=== PATIENT | male | born 1955 | race Caucasian/White ===

== ENCOUNTER 2018-08-23 09:02 | Inpatient (IN) | payer OTHER, BC ==
[2018-08-23] MEDS: METHYLPREDNISOLONE 125 MG INJ IV (09:41)
[2018-08-23 09:50] LABS: ADD MAN DIFF? NO
[2018-08-23] MEDS: ALBUTEROL 0.5% (NEB) 2.5 MG/0.5 ML AMP INH (09:50)
[2018-08-23] MEDS: IPRATROPIUM (NEB) 0.5 MG/2.5 ML AMP INH (09:50)
[2018-08-23 09:52] LABS: BASOPHILS % 0.7 % (0.0-2.0); EOSINOPHILS # 0.3 10^3/ul (0.0-0.5); EOSINOPHILS % 5.9 % (0.0-7.0); HEMATOCRIT 47.3 % (42.0-52.0); HEMOGLOBIN 15.7 g/dl (14.0-18.0); LYMPHOCYTES # 1.4 10^3/ul (0.8-2.9); LYMPHOCYTES % 26.1 % (15.0-51.0); MEAN CORPUSCULAR HEMOGLOBIN 29.5 pg (29.0-33.0); MEAN CORPUSCULAR HGB CONC 33.2 g/dl (32.0-37.0); MEAN CORPUSCULAR VOLUME 88.7 fl (82.0-101.0); MEAN PLATELET VOLUME 10.2 fl (7.4-10.4); MONOCYTE # 0.6 10^3/ul (0.3-0.9); MONOCYTES % 11.5 % (0.0-11.0); NEUTROPHILS % 55.6 % (39.0-77.0); PLATELET COUNT 189 10^3/UL (140-415); RED BLOOD COUNT 5.33 10^6/ul (4.70-6.10); RED CELL DISTRIBUTION WIDTH 12.4 % (11.5-14.5)
[2018-08-23 09:52] LABS: WHITE BLOOD COUNT 5.4 10^3/ul (4.8-10.8)
[2018-08-23 10:12] LABS: ANION GAP 7 (5-13); BLOOD UREA NITROGEN 21 mg/dl (7-20); CALCIUM 9.7 mg/dl (8.4-10.2); CARBON DIOXIDE 29 mmol/L (21-31); CHLORIDE 109 mmol/L (97-110); CREATININE 0.93 mg/dl (0.61-1.24); GLUCOSE 96 mg/dl (70-220); POTASSIUM 4.4 mmol/L (3.5-5.1); SODIUM 145 mmol/L (135-144)
[2018-08-23 10:16] LABS: INR 0.92; PROTIME 12.4 Sec (11.9-14.9)
[2018-08-23 10:24] LABS: TROPONIN-I < 0.012 ng/ml (0.000-0.120)
[2018-08-23] MEDS: SOD CHLORIDE 0.9% 1,000 ML IV (11:01)
[2018-08-23] MEDS: MAGNESIUM SULFATE 2 GM/50 ML 50 ML IVPB (11:35)
[2018-08-23] MEDS ORDERED: ACETAMINOPHEN 325 MG TAB PO ×2 (12:30→15:00)
[2018-08-23] MEDS ORDERED: ONDANSETRON 4 MG INJ IV ×2 (12:30→15:00)
[2018-08-23 14:57] LABS: LACTIC ACID 1.6 mmol/L (0.5-2.0)
[2018-08-23] MEDS ORDERED: HYDROCODONE/APAP (5/325) TAB PO (15:00)
[2018-08-23 17:08] LABS: CREATINE KINASE 86 IU/L (23-200)
[2018-08-23 17:14] LABS: CK INDEX 1.9; CK-MB 1.64 ng/ml (0.0-2.4); TROPONIN-I < 0.012 ng/ml (0.000-0.120)
[2018-08-23] MEDS: LEVOFLOXACIN 500 MG TAB PO (17:20)
[2018-08-23] MEDS: DOCUSATE SODIUM 100 MG CAP PO (17:20)
[2018-08-23] MEDS: ALBUTEROL/IPRATROPIUM (NEB) 3 ML AMP HHN ×2 (18:20→20:29)
[2018-08-23 20:48] LABS: CREATINE KINASE 98 IU/L (23-200)
[2018-08-23] MEDS: FAMOTIDINE 20 MG TAB PO (20:53)
[2018-08-23 20:58] LABS: CK INDEX 1.8; TROPONIN-I < 0.012 ng/ml (0.000-0.120)
[2018-08-24] MEDS: LEVOFLOXACIN 500 MG TAB PO (05:55)
[2018-08-24] MEDS: DOCUSATE SODIUM 100 MG CAP PO ×2 (05:55→15:00)
[2018-08-24 07:09] LABS: ADD MAN DIFF? NO
[2018-08-24 07:12] LABS: BASOPHILS % 0.2 % (0.0-2.0); EOSINOPHILS # 0.1 10^3/ul (0.0-0.5); EOSINOPHILS % 0.7 % (0.0-7.0); HEMATOCRIT 41.8 % (42.0-52.0); HEMOGLOBIN 14.1 g/dl (14.0-18.0); LYMPHOCYTES # 1.4 10^3/ul (0.8-2.9); MEAN CORPUSCULAR HEMOGLOBIN 29.8 pg (29.0-33.0); MEAN CORPUSCULAR HGB CONC 33.7 g/dl (32.0-37.0); MEAN CORPUSCULAR VOLUME 88.4 fl (82.0-101.0); MEAN PLATELET VOLUME 10.7 fl (7.4-10.4); MONOCYTE # 0.9 10^3/ul (0.3-0.9); MONOCYTES % 10.2 % (0.0-11.0); NEUTROPHIL # 6.6 10^3/ul (1.6-7.5); NEUTROPHILS % 72.6 % (39.0-77.0); PLATELET COUNT 173 10^3/UL (140-415); RED BLOOD COUNT 4.73 10^6/ul (4.70-6.10); RED CELL DISTRIBUTION WIDTH 12.5 % (11.5-14.5)
[2018-08-24 07:31] LABS: ANION GAP 7 (5-13); BLOOD UREA NITROGEN 18 mg/dl (7-20); CALCIUM 9.2 mg/dl (8.4-10.2); CARBON DIOXIDE 27 mmol/L (21-31); CHLORIDE 107 mmol/L (97-110); CREATININE 0.83 mg/dl (0.61-1.24); GLUCOSE 96 mg/dl (70-220); PHOSPHORUS 3.3 mg/dl (2.5-4.9); SODIUM 141 mmol/L (135-144)
[2018-08-24] MEDS: METHYLPREDNISOLONE 40 MG INJ IV (08:50)
[2018-08-24] MEDS: FAMOTIDINE 20 MG TAB PO ×2 (08:50→21:53)
[2018-08-24] MEDS: ALBUTEROL/IPRATROPIUM (NEB) 3 ML AMP HHN ×4 (09:27→20:29)
[2018-08-24] MEDS: MONTELUKAST 10 MG TAB PO (21:53)
[2018-08-25] MEDS: DOCUSATE SODIUM 100 MG CAP PO ×2 (03:00→15:00)
[2018-08-25] MEDS: ALBUTEROL/IPRATROPIUM (NEB) 3 ML AMP HHN ×4 (07:45→21:20)
[2018-08-25] MEDS: FAMOTIDINE 20 MG TAB PO ×2 (08:36→21:04)
[2018-08-25] MEDS: METHYLPREDNISOLONE 40 MG INJ IV (08:37)
[2018-08-25] MEDS: ACETYLCYSTEINE 20% 4 ML VIAL NEB ×2 (12:08→16:00)
[2018-08-25] MEDS: METHYLPREDNISOLONE 125 MG INJ IV ×2 (13:32→21:04)
[2018-08-25] MEDS: MONTELUKAST 10 MG TAB PO (21:04)
[2018-08-26] MEDS: DOCUSATE SODIUM 100 MG CAP PO ×2 (02:07→15:49)
[2018-08-26] MEDS: METHYLPREDNISOLONE 125 MG INJ IV ×3 (06:15→21:46)
[2018-08-26] MEDS: FAMOTIDINE 20 MG TAB PO ×2 (08:24→20:45)
[2018-08-26] MEDS: ALBUTEROL/IPRATROPIUM (NEB) 3 ML AMP HHN ×5 (09:12→23:20)
[2018-08-26] MEDS ORDERED: AZITHROMYCIN 250 MG TAB PO (11:30)
[2018-08-26] MEDS: LEVOFLOXACIN 500 MG TAB PO (12:07)
[2018-08-26] MEDS: MAGNESIUM SULFATE 2 GM/50 ML 50 ML IVPB (19:17)
[2018-08-26] MEDS: MONTELUKAST 10 MG TAB PO (20:45)
[2018-08-27] MEDS: ZOLPIDEM 5 MG TAB PO (00:12)
[2018-08-27] MEDS ORDERED: DOCUSATE SODIUM 100 MG CAP PO (03:00)
[2018-08-27] MEDS: LEVOFLOXACIN 500 MG TAB PO (06:08)
[2018-08-27] MEDS: METHYLPREDNISOLONE 125 MG INJ IV (06:08)
[2018-08-27 06:26] LABS: ADD MAN DIFF? NO
[2018-08-27 06:30] LABS: BASOPHILS % 0.1 % (0.0-2.0); HEMATOCRIT 43.8 % (42.0-52.0); HEMOGLOBIN 14.4 g/dl (14.0-18.0); LYMPHOCYTES # 0.8 10^3/ul (0.8-2.9); LYMPHOCYTES % 5.7 % (15.0-51.0); MEAN CORPUSCULAR HEMOGLOBIN 29.1 pg (29.0-33.0); MEAN CORPUSCULAR HGB CONC 32.9 g/dl (32.0-37.0); MEAN CORPUSCULAR VOLUME 88.7 fl (82.0-101.0); MEAN PLATELET VOLUME 10.5 fl (7.4-10.4); MONOCYTE # 0.7 10^3/ul (0.3-0.9); MONOCYTES % 5.1 % (0.0-11.0); NEUTROPHIL # 12.4 10^3/ul (1.6-7.5); NEUTROPHILS % 88.6 % (39.0-77.0); PLATELET COUNT 182 10^3/UL (140-415); RED BLOOD COUNT 4.94 10^6/ul (4.70-6.10); RED CELL DISTRIBUTION WIDTH 12.6 % (11.5-14.5)
[2018-08-27 06:56] LABS: ALANINE AMINOTRANSFERASE 35 IU/L (13-69); ALBUMIN 3.2 g/dl (3.3-4.9); ALBUMIN/GLOBULIN RATIO 1.14; ALKALINE PHOSPHATASE 44 IU/L (42-121); ANION GAP 8 (5-13); ASPARTATE AMINO TRANSFERASE 25 IU/L (15-46); BILIRUBIN,INDIRECT 0.4 mg/dl (0-1.1); BILIRUBIN,TOTAL 0.4 mg/dl (0.2-1.3); BLOOD UREA NITROGEN 27 mg/dl (7-20); CALCIUM 9.6 mg/dl (8.4-10.2); CARBON DIOXIDE 26 mmol/L (21-31); CHLORIDE 103 mmol/L (97-110); GLUCOSE 119 mg/dl (70-220); MAGNESIUM 2.3 mg/dl (1.7-2.5); PHOSPHORUS 3.6 mg/dl (2.5-4.9); POTASSIUM 4.5 mmol/L (3.5-5.1); SODIUM 137 mmol/L (135-144)
[2018-08-27] MEDS: FAMOTIDINE 20 MG TAB PO ×2 (08:06→20:24)
[2018-08-27] MEDS: ENOXAPARIN 40 MG/0.4 ML SYG SC (08:13)
[2018-08-27] MEDS: ALBUTEROL/IPRATROPIUM (NEB) 3 ML AMP HHN ×5 (08:22→23:52)
[2018-08-27] MEDS: MONTELUKAST 10 MG TAB PO (20:24)
[2018-08-27] MEDS: METHYLPREDNISOLONE 40 MG INJ IV (20:24)
[2018-08-27] MEDS ORDERED: METHYLPREDNISOLONE 125 MG INJ IV (21:00)
[2018-08-28] MEDS: LEVOFLOXACIN 500 MG TAB PO (05:33)
[2018-08-28 05:42] LABS: ADD MAN DIFF? NO
[2018-08-28 05:51] LABS: WHITE BLOOD COUNT 11.4 10^3/ul (4.8-10.8)
[2018-08-28 05:51] LABS: BASOPHILS % 0.1 % (0.0-2.0); HEMATOCRIT 43.6 % (42.0-52.0); HEMOGLOBIN 14.4 g/dl (14.0-18.0); LYMPHOCYTES # 0.9 10^3/ul (0.8-2.9); MEAN CORPUSCULAR HEMOGLOBIN 29.4 pg (29.0-33.0); MEAN PLATELET VOLUME 10.7 fl (7.4-10.4); MONOCYTE # 0.6 10^3/ul (0.3-0.9); MONOCYTES % 5.6 % (0.0-11.0); NEUTROPHIL # 9.7 10^3/ul (1.6-7.5); NEUTROPHILS % 85.6 % (39.0-77.0); PLATELET COUNT 187 10^3/UL (140-415); RED CELL DISTRIBUTION WIDTH 12.6 % (11.5-14.5)
[2018-08-28 06:16] LABS: ANION GAP 9 (5-13); BLOOD UREA NITROGEN 27 mg/dl (7-20); CALCIUM 9.2 mg/dl (8.4-10.2); CARBON DIOXIDE 27 mmol/L (21-31); CHLORIDE 104 mmol/L (97-110); CREATININE 0.71 mg/dl (0.61-1.24); Estimated GFR > 60 mL/min (>60); GLUCOSE 113 mg/dl (70-220); MAGNESIUM 2.2 mg/dl (1.7-2.5); POTASSIUM 4.5 mmol/L (3.5-5.1); SODIUM 140 mmol/L (135-144)
[2018-08-28 07:43] LABS: TRIIODOTHYRONINE 0.67 ng/ml (0.97-1.69)
[2018-08-28] MEDS: FAMOTIDINE 20 MG TAB PO (08:31)
[2018-08-28] MEDS: METHYLPREDNISOLONE 40 MG INJ IV (08:31)
[2018-08-28] MEDS: ENOXAPARIN 40 MG/0.4 ML SYG SC (08:35)
[2018-08-28] MEDS: ALBUTEROL/IPRATROPIUM (NEB) 3 ML AMP HHN ×2 (09:20→13:40)
[2018-08-28] MEDS ORDERED: AZITHROMYCIN 250 MG TAB PO (12:00)
[2018-08-28] MEDS: PNEUMOCOCCAL VACCINE 0.5 ML INJ IM* (13:13)
== END 2018-08-28 15:30 | disposition home or self-care (01) | DRG 189 ==
LOC: E/R 09:02 → 2NE 12:27
DX: J96.01 Acute respiratory failure with hypoxia (principal); J45.901 Unspecified asthma with (acute) exacerbation; E86.0 Dehydration; I35.1 Nonrheumatic aortic (valve) insufficiency; D72.829 Elevated white blood cell count, unspecified; T38.0X5A Adverse effect of glucocorticoids and synthetic analogues, initial encounter; Y92.230 Patient room in hospital as the place of occurrence of the external cause; Z87.891 Personal history of nicotine dependence
CPT/HCPCS: 36415; 71045; 80048; 80053; 82550; 82553; 83605; 83735; 84100; 84439; 84443; 84480; 84484; 85025; 85610; 87070; 87400; 89220; 90686; 90732; 93005; 93306; 93970; 94640; 94644; 94664; 96361; 96365; 96375; 99285-25